=== PATIENT | female | born 2000 | race Caucasian/White ===

== ENCOUNTER 2022-05-27 14:03 | Emergency (ER) | payer BC, OTHER ==
[~2022-05-27] VITALS: Ht 160 cm; Wt 56.8 kg
[2022-05-27 15:19] VITALS: BP 131/75
[2022-05-27] MEDS ORDERED: IBUP600T27 PO (15:53)
[2022-05-27] MEDS ORDERED: AMOX-277 PO (15:53)
== END 2022-05-27 15:59 | disposition home or self-care (01) ==
LOC: ER 14:03
DX: H66.92 Otitis media, unspecified, left ear (principal); L72.8 Other follicular cysts of the skin and subcutaneous tissue
CPT/HCPCS: 81025

== ENCOUNTER 2024-05-22 11:09 | Emergency (ER) | payer BC ==
[~2024-05-22] VITALS: Ht 162.6 cm; Wt 58.4 kg
[~2024-05-22 11:09] MED LIST: AMOX875T4 PO; IBUP-1454 PO
[2024-05-22 11:52] VITALS: BP 101/61; PULSE 97; RESP 17; TEMP 98.5; O2SAT 97
[2024-05-22] MEDS ORDERED: AUG875T PO (12:43)
[2024-05-22] MEDS ORDERED: LORA10TA6 PO (12:43)
--- NOTE | 2024-05-22 12:43 | ED.PDOC ---
Eye-HPI HPI Comments This is a pleasant 23-year-old with a MHx that is sent from urgent care for right eye complaint. Patient reports little swelling in the morning that subsides throughout the day. Only located to the right side Denies vision changes Denies eye discharge Denies hearing changes, nausea, vomiting Denies eye pain with movement, eye pain in general, difficulty keeping eye open, feeling of something stuck in the eye, sensitivity to light Chief Complaint: Eye Problem Time Seen by MD: 11:43 Reviewed Notes: Nurses Notes, Medications, Allergies Allergies: Coded Allergies: NO KNOWN ALLERGIES (Unverified , 05/22/24) Home Meds Active Scripts Loratadine (Loratadine) 10 Mg Tab, 10 MG PO DAILY for 30 Days, #30 TAB 0 Refills Prov:ELISE OLVERA NP 05/22/24 Amoxicillin & Pot Clavulanate (AUGMENTIN TABLET) 875 Mg Tb, 875 MG PO BID for 7 Days, #14 TAB 0 Refills Prov:ELISE OLVERA NP 05/22/24 Ibuprofen (Ibuprofen) 600 Mg Tab, 1 TAB PO TID, #30 TAB Prov:CATY ROSALES 05/27/22 Amoxicillin & Pot Clavulanate (Amoxicillin/Potassium Cla) 875 Mg Tab, 1 TAB PO BID, #20 TAB Prov:CATY ROSALES 05/27/22 Information Source: Patient Mode of Arrival: Ambulatory Past Medical History PAST MEDICAL HISTORY: Denies Surgical History: Denies all surgeries LICENSED GUIDE History: Denies all LICENSED GUIDE Hx Family History Family History: Reviewed,noncontributory to illness Social History Smoker: Non-Smoker Alcohol: Denies ETOH Use Drugs: Denies Drug Use Lives In: Home All Other Systems: Reviewed and Negative (per hpi) Physical Exam General Appearance: No Apparent Distress, Normal HEENT: Normal ENT Inspection, Pharynx Normal, TMs Normal, Other (Bilateral eyes are normal. Vision is 2020 without correction. The there is mild orbital swelling to the right eye however no injection to the sclera or conjunctiva. No foreign body appreciated. Extraocular movements are intact and pupils are equal round reactive to light and accommodation) Neck: Full Range of Motion, Non-Tender, Normal, Normal Inspection Respiratory: Chest Non-Tender, Lungs Clear, No Accessory Muscle Use, No Respiratory Distress, Normal Breath Sounds Cardiovascular: No Edema, No JVD, No Murmur, No Gallop, Normal Peripheral Pulses, Regular Rate/Rhythm Breast Exam: Deferred Gastrointestinal: No Organomegaly, Non Tender, No Pulsatile Mass, Normal Bowel Sounds, Soft Genitalia: Deferred Pelvic: Deferred Rectal: Deferred Extremities: No calf tenderness, Normal capillary refill, Normal inspection, Normal range of motion, Non-tender, No pedal edema Musculoskeletal : Apperance: Normal Neurologic: Alert, 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 Was a procedure done?: No EENT DIFF Eye: Allergic, Other X-Ray, Labs, Meds, VS Vital Signs Date Time Temp Pulse Resp B/P (MAP) Pulse Ox O2 Delivery O2 Flow Rate FiO2 05/22/24 11:52 97 17 97 Room Air 05/22/24 11:52 98.5 97 17 101/61 (74) 97 98.5 05/22/24 11:41 98.5 97 17 101/61 (74) 98 98.5 X-Ray, Labs, Meds, VS Comment Patient is stable for discharge at this time. External notes reviewed. Test results and diagnostic imaging interpreted. All diagnostic findings, discharge care, education and instructions provided Follow-up with PCP for allergy testing and optometry as soon as possible Empiric treatment for now the patient agreed to plan Patient verbalized understanding and agreed to treatment plan Vital signs stable, afebrile, no acute distress noted Patient ambulatory with strong steady gait Advised to return precautions for any new or worsening symptoms, return to ER immediately for re-evaluation Patient is aware that the purpose of this visit was for an acute medical emergency requiring emergent stabilization. Chronic conditions, including malignancies have not been ruled out. Patient is instructed to follow up with PCP as directed and discharge instructions for continued care and workup. If unable to arrange follow-up, patient is to return to the emergency department for reassessment. Patient (parent or legal guardian if applicable) was given verbal and written discharge instructions and acknowledges understanding. Time of 1ST Reevaluation: 12:41 Reevaluation 1ST: Improved Patient Education/Counseling: Diagnosis, Treatment Family Education/Counseling: Diagnosis, Treatment Departure 1 Departure Time of Disposition: 12:41 Impression: Primary Impression: Eye swollen, right Disposition: HOME / SELF CARE / HOMELESS Condition: Stable e-Prescriptions Loratadine (Loratadine) 10 Mg Tab 10 MG PO DAILY for 30 Days, #30 TAB 0 Refills Prov: ELISE OLVERA NP 05/22/24 Amoxicillin & Pot Clavulanate (AUGMENTIN TABLET) 875 Mg Tb 875 MG PO BID for 7 Days, #14 TAB 0 Refills Prov: ELISE OLVERA NP 05/22/24 Critical Care Note Critical Care Time?: No Stability Stability form required: No Heart Score Heart Score: Heart Score Response (Comments) Value History N/A 0 EKG N/A 0 Age N/A 0 Risk Factors N/A 0 Troponin N/A 0 Total 0 ELISE OLVERA NP May 22, 2024 12:43
== END 2024-05-22 12:46 | disposition home or self-care (01) ==
LOC: ER 11:09
DX: H57.11 Ocular pain, right eye (principal); Z79.1 Long term (current) use of non-steroidal anti-inflammatories (NSAID)